=== PATIENT | male | born 1935 | race Caucasian/White ===

== ENCOUNTER 2016-03-28 10:45 | Emergency (ER) | payer MEDICARE ==
[~2016-03-28] VITALS: Ht 182.9 cm; Wt 80.9 kg
[2016-03-28 10:48] VITALS: BP 164/79; PULSE 79; RESP 15; O2SAT 98
--- NOTE | 2016-03-28 11:08 | ED.REPORT ---
HPI-Trauma Multiple Date of Service Mar 28, 2016 ED Provider: Adriel Quintero MD Moe is an 81-year-old male with a history of asbestosis who presents with a chief complaint a fall last night. Patient states that he became dizzy and fell while checking on his water pump last night. He fell over and hit his head on the metal tripod supporting his trailer. He denies loss of consciousness, but states that he was too dizzy to walk. Denies headache pain and use of blood thinners. Admits to vomiting, nonbloody and nonbilious, which he states has been chronic and happening every other day or so for the last 3 or 4 months. He reports he has been having dizzy spells and falling for roughly the same amount of time. He states that the falls are preceded by a sensation of nausea and sensation of the room is spinning. He reports a history of ongoing tenderness and a remote history of barotrauma to his ears associated with his time in the [employer]. He had upper endoscopy and colonoscopy approximately one month ago to the patient states was normal. Followed by Dr. Ayala in [place], though they state they wish to be referred to a new primary care provider. Dr. Ayala Place the patient has IBS and abuses THC. Patient admits to use of THC, but does not believe he abuses it. Denies chest pain, palpitations, cough, wheeze, dyspnea, abdominal pain, diarrhea, bloody/ tarry stool, urinary symptoms, upper respiratory symptoms. Denies cardiac history. Nursing Notes Stated Complaint: POST FALL, FACIAL PAIN Chief Complaint: Multiple Trauma/Fall Nursing Notes Reviewed: Yes Allergies: Coded Allergies: No Known Allergies (Unverified , 03/28/16) Scheduled PRN Meclizine (Bonine) 25 Mg Tab.chew 25 MG PO TID PRN PRN For Dizziness General Time Seen by Provider: 10:53 Chief Complaint Head pain/injury Past Medical History Past Medical History Notes: Asbestosis Past Medical History Denies: Cancer, Congestive heart failure, Coronary artery disease Review of Systems General: Denies fever, chills, malaise. HEENT: Denies congestion, headache, sore throat. Respiratory: Denies dyspnea, cough, shortness of breath, wheezing. Cardiovascular: Denies chest pain, palpitations. Gastrointestinal: Admits vomiting, denies diarrhea, abdominal pain, bloody/ tarry stool. Genitourinary: Denies frequency, urgency, dysuria, hematuria. Otherwise as noted in HPI. Physical Exam General: Well appearing, well developed, well nourished, no acute distress. Head: 5x5 cm area of abrasion over the left forehead, bridge of nose. normocephalic. No mastoid tenderness. Eyes: No scleral icterus or injection. No discharge. PERRL. Vision grossly intact. Ears: Pinna and tragus nontender with manipulation. External auditory canal patent, atraumatic and without discharge. Tympanic membrane gomez, shiny and translucent without fluid, bulging, retraction or perforation. Hearing grossly intact. Nose: Symmetrical, nares patent without discharge. No frontal or maxillary sinus tenderness. Mouth/pharynx: Poor dentition, mucus membranes moist. Tonsils surgically absent , uvula midline. Pharynx noninjected, no cobblestoning or discharge. Voice clear. Neck: No tenderness or lymphadenopathy. Trachea midline. Respiratory: Regular rate and rhythm. Fine crackles in all crowley. Cardiovascular: Regular rate and rhythm, without murmur, gallop or rub. No pedal edema. Gastrointestinal: Abdomen flat and non-tender without guarding or rebound. Bowel sounds normoactive. Skin: Warm and dry. Neurological: Negative pronator drift, negative leg drift. Sensation and strength grossly intact in extremities. Cranial nerves: Vision grossly intact, PERRL, EOMI with bilateral nystagmus. Facial motion symmetrical, sensation to light touch over forehead, maxilla and mandible present and equal B/L. Voice clear and fluent, no drooling/pooling of saliva, uvula rises midline. Psychological: Alert and oriented. Speech appropriate, linear and logical. Behavior appropriate. Initial Vital Signs Vital Signs (First) Date Time Temp Pulse Resp B/P Pulse Ox O2 Delivery O2 Flow Rate FiO2 03/28/16 10:48 36.1 79 15 164/79 98 Room Air Initial VS: Reviewed, Vital signs normal Interpretation & Diagnostics Lab Results Interpretation Result Diagram: 03/28/16 1228 03/28/16 1228 Test 03/28/16 12:28 03/28/16 13:29 White Blood Count 10.4th/mm3 (3.8-10.1) Red Blood Count 4.65mil/mm3 (4.40-5.80) Hemoglobin 14.2g/dL (13.8-17.2) Hematocrit 41.2% (41.0-50.0) Mean Corpuscular Volume 88.6fL (81-100) Mean Corpuscular Hemoglobin 30.5pg (27.0-35.0) Mean Corpuscular Hemoglobin Concent 34.5% (32.0-37.0) Red Cell Distribution Width 13.1% (12.3-15.4) Platelet Count 268bil/L (150-400) Neutrophils (%) (Auto) 70.7% (40-74) Lymphocytes (%) (Auto) 17.0% (14-46) Monocytes (%) (Auto) 10.1% (4-12) Eosinophils (%) (Auto) 1.0% (0-5) Basophils (%) (Auto) 0.3% (0-3) Sodium Level 129mEq/L (134-144) Potassium Level 4.4mEq/L (3.5-5.2) Chloride Level 89mEq/L (97-108) Carbon Dioxide Level 26mmol/L (18-29) Blood Urea Nitrogen 19mg/dL (8-27) Creatinine 0.94mg/dL (0.76-1.27) Estimat Glomerular Filtration Rate 82mL/min (>59) Glucose Level 98mg/dL (60-99) Calcium Level 9.4mg/dL (8.5-10.1) Total Bilirubin 0.2mg/dL (0.0-1.2) Aspartate Amino Transf (AST/SGOT) 19U/L (0-50) Alanine Aminotransferase (ALT/SGPT) 12U/L (0-44) Alkaline Phosphatase 57U/L (25-160) Troponin T < 0.010ug/L (0.0-0.011) Total Protein 6.9g/dL (6.4-8.4) Albumin 4.1g/dL (3.4-5.0) Hold Urine Received (Received) X-Ray Chest Interpretation Chest Xray Interpretation: PROCEDURE: X-RAY CHEST ONE VIEW, PORTABLE ([id number]) INDICATIONS: vertigo, fall IMPRESSION: Relatively extensive pleural plaquing and calcification noted over the lungs bilaterally. No acute disease when this is taken into account. Interpretation / Wet Read by: Interpret - Radiologist, Interp - [facility] CT Head Interpretation PROCEDURE: CT BRAIN WITHOUT CONTRAST ([id number]) INDICATIONS: fall CSF spaces: Basal cisterns are patent. No extra-axial fluid collections. The ventricles are symmetric in size and shape. Brain: No intracranial bleeds or masses. There is cerebral volume loss for age, with resultant ventricular and sulcal prominence. There are periventricular and deep white matter chronic small vessel ischemic changes. There is intracranial internal carotid artery atherosclerosis. Skull and face: Calvarium and visualized facial bones appear intact, without suspicious lesions. Mild left frontal scalp swelling is noted. Sinuses: Visualized sinuses and mastoids are clear. IMPRESSION: No acute intracranial disease process. Re-Eval/Medical Decision Med Decision/Clinical Course Moe is a 81-year-old male with history of asbestosis who presents with a chief complaint of fall. He reports becoming dizzy last night falling and striking his head. Denies loss of consciousness, increasing headache, use of blood thinners. Does admit vomiting which has been chronic over the last 2-3 months. Vertiginous dizziness has been persistent intermittently over the last 2-3 months as well. Denies history of cardiac events. Physical exam reveals an abrasion over the left forehead and bridge of his nose. CT of the head reveals no acute processes. Cardiac workup including troponin, EKG and chest x-ray are reassuring. Everardo-Hallpike maneuver is negative. Cranial nerves and neurological examination normal with the exception of lateral nystagmus with EOM. Borderline hyponatremia noted not thought to be pertinent. I discussed the case with Dr. quintero. We believe this most likely peripheral vertigo versus central due to intermittent nature. Abrasion to the forehead appears to be healing well with no signs of infection. Patient is unhappy with his current primary care provider. I provided a referral for primary care follow-up and advised to follow-up in the next few days to further address the chronic nausea vomiting dizziness. Provided prescription for meclizine and return precautions Discharge & Departure Impression: Primary Impression: Contusion of head Encounter type: initial encounter Contusion of head detail: scalp Qualified Code: S00.03XA - Contusion of scalp, initial encounter Additional Impression: Vertigo Disposition: Home Discharge Condition All VS Reviewed: Yes Condition: Stable Patient Instructions: Contusions in Adults (ED) Additional Instructions: Evaluation following a ground-level fall last night. Head CT was reassuring that there is no skull fracture or bleeding in the brain. Chest x-ray, EKG and labs are reassuring that the fall was not caused by a cardiac event. History and physical suggest this is most likely dizziness caused by a problem in your ear. I will prescribe medication to help with this. I will also provide you a referral for a new primary care provider. Please contact them soon to arrange follow-up in the next few days if possible. Return to emergency department for any new or worsening symptoms including repeated vomiting, increasing headache, loss of consciousness, worsening dizziness. Referrals: Nima Jones MD EDSupervising Provider for APC: Adriel Quintero MD Attending Statement Attending attestation: I saw this patient in conjunction with Jai Pizano PA-C. I agree with the workup, evaluation, treatment and disposition. Adriel Quintero MD copies to: Nima Jones MD, Beck O MD Mar 28, 2016 11:08 Jai Pizano PA-C Mar 28, 2016 11:49
[2016-03-28] MEDS ORDERED: 0.9% Sodium Chloride 1,000 ML IV ONE (11:49)
[2016-03-28 12:34] LABS: BASOPHILS % (AUTO) 0.3 % (0-3); MONOCYTES % (AUTO) 10.1 % (4-12); Mean Corpuscular Hemoglobin 30.5 pg (27.0-35.0); Mean Corpuscular Volume 88.6 fL (81-100); NEUTROPHILS % (AUTO) 70.7 % (40-74); Platelet Count 268 bil/L (150-400)
--- NOTE | 2016-03-28 12:35 | DRSVH ---
PROCEDURE: X-RAY CHEST ONE VIEW, PORTABLE ([id number]) INDICATIONS: vertigo, fall TECHNIQUE: One view of the chest was acquired. COMPARISON: [facility], CR, CHEST 2VW, 12/23/2013, 14:11. [facility], CT, KUB - CT (ABD/PEL W/O CONT), 04/21/2015, 9:41. [facility], CR, ABD ACUTE SERIES, 016, 16:52. FINDINGS: Surgical changes and devices: None. Lungs and pleura: No pleural effusions or pneumothorax. Lungs are somewhat difficult to assess due to overlying pleural plaquing and calcifications as has been previously the case. Mediastinum: Mediastinal contours appear normal. Heart size is normal. Bones and chest wall: No suspicious bony lesions. Overlying soft tissues appear unremarkable. IMPRESSION: Relatively extensive pleural plaquing and calcification noted over the lungs bilaterally. No acute disease when this is taken into account. Dictated by: Boo Pollock M.D. on 03/28/2016 at 12:34 Approved by: Boo Pollock M.D. on 03/28/2016 at 12:35
--- NOTE | 2016-03-28 12:58 | DRSVH ---
PROCEDURE: CT BRAIN WITHOUT CONTRAST ([id number]) INDICATIONS: fall TECHNIQUE: Noncontrast 4.5 mm thick angled axial sections acquired from the foramen magnum to the vertex, with c oronal reformats. COMPARISON: None. FINDINGS: Image quality: Excellent. CSF spaces: Basal cisterns are patent. No extra-axial fluid collections. The ventricles are symmet mckinley in size and shape. Brain: No intracranial bleeds or masses. There is cerebral volume loss for age, with resultant vent ricular and sulcal prominence. There are periventricular and deep white matter chronic small vessel ischemic changes. There is intracranial internal carotid artery atherosclerosis. Skull and face: Calvarium and visualized facial bones appear intact, without suspicious lesions. Mil d left frontal scalp swelling is noted. Sinuses: Visualized sinuses and mastoids are clear. IMPRESSION: No acute intracranial disease process. Dictated by: Taylor Alonzo MD, PhD on 03/28/2016 at 12:55 Approved by: Taylor Alonzo MD, PhD on 03/28/2016 at 12:56
[2016-03-28 13:05] LABS: TROPONIN T < 0.010 ug/L (0.0-0.011)
[2016-03-28] MEDS ORDERED: MECL-114 PO (13:42)
[2016-03-28 14:04] VITALS: BP 158/74; PULSE 72; RESP 16; O2SAT 98
== END 2016-03-28 14:06 | disposition home or self-care (01) ==
LOC: SED 10:45
DX: S00.03XA Contusion of scalp, initial encounter (principal); R42 Dizziness and giddiness; R11.10 Vomiting, unspecified; W18.09XA Striking against other object with subsequent fall, initial encounter; Y93.89 Activity, other specified; Y92.9 Unspecified place or not applicable; Y99.8 Other external cause status; Z77.090 Contact with and (suspected) exposure to asbestos; Z91.81 History of falling
CPT/HCPCS: 36415; 70450; 71010; 80053; 84484; 85025; 93005; 96360; 99285; J7030

== ENCOUNTER 2016-04-04 13:06 | Inpatient (IN) | payer MEDICARE ==
[~2016-04-04] VITALS: Ht 182.9 cm; Wt 79.0 kg
[~2016-04-04 13:06] MED LIST: MECL-114 PO
[2016-04-04 13:11] VITALS: BP 129/78; PULSE 78; RESP 16; O2SAT 98
--- NOTE | 2016-04-04 13:20 | ED.REPORT ---
HPI-General Illness Date of Service Apr 04, 2016 ED Provider: History of Present Illness: 81-year-old male brought in by his daughter, Rama, for increasing dizziness, increasing falls and weakness. THis been ongoing for 3 months but really increasing in the last 2 weeks. They have been worked up multiple times. Here 03/28/16, [facility] yesterday. He had an CT of his brain yesterday, normal. They have seen his PCP Dr. Ayala. He has a neuro consult has not gone. He was given medications for his dizziness yesterday but have not picked them up. He fell last night and again this morning., landing on his posterior occiput both times. No loss of consciousness. States he fell because he was dizzy/lightheaded. Dizziness is brief but severe. He has been vomiting intermittently for 3-4 months. Usually in the morning and at night. Decreased oral intake but is able to take in fluids and food he does have more trouble keeping it down. He has a history of cough and his cough is at its baseline. He was exposed to absestos. He is not confused, no drug use, and he is a nonsmoker. Patient's daughter adamant that he needs to be admitted today as he is unsafe at home. Nursing Notes Stated Complaint: NOT EATING,FALLING DOWN,CANT STAND UP Chief Complaint: Multiple Trauma/Fall Nursing Notes Reviewed: Yes Allergies: Coded Allergies: No Known Allergies (Unverified , 03/28/16) Scheduled Esomeprazole Magnesium (Nexium) 20 Mg Capsule.dr 20 MG PO QAM Scheduled PRN Meclizine (Bonine) 25 Mg Tab.chew 25 MG PO TID PRN PRN For Dizziness Ondansetron (Ondansetron) 4 Mg Tablet 4 MG PO TID PRN PRN For Nausea/Vomiting Polyethylene Glycol 3350 (Polyethylene Glycol 3350) 17 Gm Powd.pack 17 GM PO DAILY PRN PRN For Constipation General Time Seen by MD: 13:19 Chief Complaint Dizziness Hx Obtained From: Patient, Daughter Arrived By: Walk-in Onset Occurred: More than a week ago... (4 months) Severity: Current: No pain currently Recent Healthcare: Recent doctor visit, Recent hospitalization Similar Sx Previous: Yes Past Medical History Past Medical History Notes: Asbestosis GERD Review of Systems Full Review of Systems Constitutional: Denies: Fatigue, Fever Respiratory: Reports: Dyspnea on exertion Cardiovascular: Denies: Chest pain GI: Reports: Nausea, Vomiting, Denies: Abdominal pain Male: Denies Dysuria Musculoskeletal: Reports: Back pain Endocrine: Denies: Weight gain, Weight loss Neurologic: Reports: Dizziness, Lightheaded Complete sys rev & neg: except as marked. Physical Exam Vital Signs Vital Signs Date Time Temp Pulse Resp B/P Pulse Ox O2 Delivery O2 Flow Rate FiO2 04/04/16 13:11 36.0 78 16 129/78 98 Room Air Initial VS: Reviewed, Vital signs normal General/Constitutional: Well-developed, Well-nourished Head / Eyes: Atraumatic, Normocephalic, PERRL ENT: Mucous membranes moist, Conjunctiva normal, No scleral icterus Neck: Supple, Non-tender, Full range of motion Respiratory: No respiratory distress Cardiovascular: Regular rate & rhythm, Heart sounds normal, Intact distal pulses Abdomen / GI: Soft, Non-tender, No guarding, No rebound, No distention Lymphatic: No lymphadenopathy Extremities: Vascular intact, Neuro intact, No swelling, No tenderness Skin: Warm, Dry, No cyanosis Neurologic: Alert, Oriented, Nonfocal Psychiatric: Mood/affect normal, Behavior normal, Normal thought content General/Constitutional: Awake, Alert, No acute distress Head / Eyes: PERRL Eye Movement: Positive: Nystagmus horizontal left nystagmus Rales / Rhonchi: Positive: Rhonchi coarse L Interpretation & Diagnostics Interpretation & Diagnostics: MPRESSION: Prior asbestos related pleural disease, 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 No pneumonia found. MPRESSION: 1. No acute intracranial findings. 2. Findings suspicious for new left maxillary sinus sinusitis. 3. Findings likely associated with microvascular ischemic changes. Lab Results Interpretation Result Diagram: 04/04/16195704/04/161957 Test 04/04/16 14:05 04/04/16 14:25 04/04/16 14:41 Troponin T < 0.010ug/L (0.0-0.011) Hold Flores Top Tube Received (Received) Alcohol, Quantitative < 10mg/dL (0-10) Lactic Acid Level 1.2mmol/L (0.4-2.0) Urine Color Yellow (YELLOW) Urine Appearance Hazy (CLEAR,HAZY) Urine pH 7.5 (5.0-8.0) Urine Specific [place] 1.015 (1.003-1.035) Urine Protein Negativemg/dL (NEG,TRACE) Urine Glucose (UA) Negativemg/dL (NEGATIVE) Urine Ketones Negativemg/dL (NEGATIVE) Urine Occult Blood Negative (NEGATIVE) Urine Nitrite Negative (NEGATIVE) Urine Bilirubin Negative (NEGATIVE) Urine Urobilinogen Normalmg/dL (NORMAL) Urine Leukocyte Esterase Negative (NEGATIVE) Urine RBC 0-2/hpf (0-2) Urine WBC 0-5/hpf (0-5) Urine Epithelial Cells Occasional/hpf (NONE-MOD) Urine Crystals Amorphous phosphates Urine Bacteria Few/hpf (NONE-FEW) Urine Hyaline Casts None/lpf (NONE) Urine Granular Casts None seen (NONE SEEN) Urine Waxy Casts None seen (NONE SEEN) Urine Red Blood Cell Casts None seen (NONE SEEN) Urine White Blood Cell Casts None seen (NONE SEEN) Urine Mucus Present (None Seen) Urine Trichomonas None seen (NONE SEEN) Urine Yeast None (NONE SEEN) Urinalysis Comment None Urine Culture Reflexed Not indicated Lab Results Interpretation: CBC normal CMP - mild hyponatremia UA negative Re-Eval/Medical Decision Med Decision/Clinical Course 1630 Dr. Quintana at bedside for evaluation, discussed patient with him and agrees with admission. Daughter adamant that he cannot go home as he is unsafe. Source of Hx: Old records (cane from [place]) Consultation : Referral / Consult Name: Maria Elena Sanchez MD Consulted With: Hospitalist Call Returned at: 17:30 Corporate Secretary: Accepts admit Note: I discussed case with hospitalist - Dr. Quintana Counseled Regarding: Diagnosis Discharge & Departure Primary Impression: Vertigo Additional Impressions: Hyponatremia Multiple falls Referrals: OTHER,PHYSICIAN (PCP) Attending Statement This is a patient initially seen by the mid-level provider. However I personally interviewed and examined this patient. This patient presents complaining of ongoing dizziness and ongoing multiple falls. He has had some dizziness for the past couple months, he family indicates has been much worsening over the past roughly 7-14 days. Patient was seen on March 28 of dizziness and a fall, negative workup at that time. He was seen yesterday in [place] again had a repeat head CT, and is allegedly scheduled for an outpatient MRI, but had a third fall this morning, reports dizzy and his family states "he absolutely cannot walk". The family is immediately rectal rectal requesting admission given a do not think he is safe at home. He denies any headache or neck pain. Denies focal numbness or weakness although reports at times he says his left arm feels cold-but that has been occurring over the past year and is not new. (He has strong pulses today). He denies any infectious symptoms. He does report a sense of movement and the symptoms are worsened by sitting up, turning his head, or standing up nicely recurrent nausea. He is medication list includes meclizine-but the patient states the first of all the meclizine was not helping, as a result his family and suggested Benadryl which she has been taking only one tab twice a day recent days, but that he is actually been out all medicines for the past 2-3 days which he is actually frustrated about. He denies being on anticoagulants. Procedure his head hard today, he denies any headache or neck pain at present. He denies any pain for many injuries from multiple falls this past week. His family do think there has been a change in mental status and acuity over the past week since he is pretty sudden, speech and mentation appear intact in the department. For me has an NIH stroke scale of 0, with no focal findings on the stroke scale. He does however have horizontal nystagmus lateral gaze, which is actually worse with looking to the left. Is unknown if this is really new. He has normal finger to nose, and normal [id number] without gross ataxia in those testing-but does not feel comfortable getting up-as R he had multiple falls demonstrating an imbalance, so gait was not retested at this time. He had repeat labs and imaging performed. Records from [place] were obtained. Although the nurse's note indicates he has had an MRI, and the patient thought that he had an MRI yesterday, he had CT imaging at [place]-has not yet undergone MRI imaging today. His labs are notable for mild hyponatremia, but do not appear changed over the past week. The patient has normal vitals, is afebrile, has no infectious symptoms. At this point with 3 repeat visits, worsening of symptoms, inability to safely handle A, multiple call falls-admission is indeed warranted. I have ordered an MRI of the brain, physical therapy consultation during the hospitalization as also indicated, and the patient's or PE received a dose of meclizine. The case is discussed with the hospitalist Anu Pugh Apr 04, 2016 13:20 Darian Quintana MD Apr 04, 2016 18:02 Amorphous phosphates Urine Bacteria Few/hpf (NONE-FEW) Urine Hyaline Casts None/lpf (NONE) Urine Granular Casts None seen (NONE SEEN) Urine Waxy Casts None seen (NONE SEEN) Urine Red Blood Cell Casts None seen (NONE SEEN) Urine White Blood Cell Casts None seen (NONE SEEN) Urine Mucus Present (None Seen) Urine Trichomonas None seen (NONE SEEN) Urine Yeast None (NONE SEEN) Urinalysis Comment None Urine Culture Reflexed Not indicated Lab Results Interpretation: CBC normal CMP - mild hyponatremia UA negative Re-Eval/Medical Decision Med Decision/Clinical Course 1630 Dr. Quintana at bedside for evaluation, discussed patient with him and agrees with admission. Daughter adamant that he cannot go home as he is unsafe. Consultation : Referral / Consult Name: Maria Elena Sanchez MD Consulted With: Hospitalist Call Returned at: 17:30 Corporate Secretary: Accepts admit Note: I discussed case with hospitalist - Dr. Quintana Discharge & Departure Primary Impression: Vertigo Additional Impressions: Hyponatremia Multiple falls Referrals: OTHER,PHYSICIAN (PCP) Attending Statement This is a patient initially seen by the mid-level provider. However I personally interviewed and examined this patient. This patient presents complaining of ongoing dizziness and ongoing multiple falls. He has had some dizziness for the past couple months, he family indicates has been much worsening over the past roughly 7-14 days. Patient was seen on March 28 of dizziness and a fall, negative workup at that time. He was seen yesterday in [facility] had a repeat head CT, and is allegedly scheduled for an outpatient MRI, but had a third fall this morning, reports dizzy and his family states "he absolutely cannot walk". The family is immediately rectal rectal requesting admission given a do not think he is safe at home. He denies any headache or neck pain. Denies focal numbness or weakness although reports at times he says his left arm feels cold-but that has been occurring over the past year and is not new. (He has strong pulses today). He denies any infectious symptoms. He does report a sense of movement and the symptoms are worsened by sitting up, turning his head, or standing up nicely recurrent nausea. He is medication list includes meclizine-but the patient states the first of all the meclizine was not helping, as a result his family and suggested Benadryl which she has been taking only one tab twice a day recent days, but that he is actually been out all medicines for the past 2-3 days which he is actually frustrated about. He denies being on anticoagulants. Procedure his head hard today, he denies any headache or neck pain at present. He denies any pain for many injuries from multiple falls this past week. His family do think there has been a change in mental status and acuity over the past week since he is pretty sudden, speech and mentation appear intact in the department. For me has an NIH stroke scale of 0, with no focal findings on the stroke scale. He does however have horizontal nystagmus lateral gaze, which is actually worse with looking to the left. Is unknown if this is really new. He has normal finger to nose, and normal [id number]-sjfv without gross ataxia in those testing-but does not feel comfortable getting up-as R he had multiple falls demonstrating an imbalance, so gait was not retested at this time. He had repeat labs and imaging performed. Records from [place] were obtained. Although the nurse's note indicates he has had an MRI, and the patient thought that he had an MRI yesterday, he had CT imaging at [place]-has not yet undergone MRI imaging today. His labs are notable for mild hyponatremia, but do not appear changed over the past week. The patient has normal vitals, is afebrile, has no infectious symptoms. At this point with 3 repeat visits, worsening of symptoms, inability to safely handle A, multiple call falls-admission is indeed warranted. I have ordered an MRI of the brain, physical therapy consultation during the hospitalization as also indicated, and the patient's or PE received a dose of meclizine. The case is discussed with the hospitalist Anu Pugh Apr 04, 2016 13:20 Darian Quintana MD Apr 04, 2016 18:02
[2016-04-04 14:11] LABS: BASOPHILS % (AUTO) 0.3 % (0-3); EOSINOPHILS % (AUTO) 0.7 % (0-5); MONOCYTES % (AUTO) 10.3 % (4-12); Mean Corpuscular Hemoglobin 30.5 pg (27.0-35.0); Mean Corpuscular Volume 88.2 fL (81-100); NEUTROPHILS % (AUTO) 65.5 % (40-74); Platelet Count 272 bil/L (150-400)
--- NOTE | 2016-04-04 14:13 | DRSVH ---
PROCEDURE: CT BRAIN WITHOUT CONTRAST ([id number]) INDICATIONS: fall/dizziness TECHNIQUE: Noncontrast 4.5 mm thick angled axial sections acquired from the foramen magnum to the vertex, with c oronal reformats. COMPARISON: [facility], CT, CT BRAIN WO CON, 03/28/2016, 12:38. FINDINGS: Image quality: Excellent. CSF spaces: Basal cisterns are patent. No extra-axial fluid collections. The ventricles are symmet mckinley in size and shape. Brain: No intracranial bleeds or masses. There is cerebral volume loss for age, with resultant vent ricular and sulcal prominence. There are periventricular and deep white matter chronic small vessel ischemic changes. There is intracranial internal carotid artery atherosclerosis. Skull and face: Calvarium and visualized facial bones appear intact, without suspicious lesions. Sinuses: Frothy appearing fluid is present in the inferior aspect of the left maxillary sinus which is new when compared with the study dated 03/28/16. Visualized sinuses and mastoids are otherwise mukesh r. IMPRESSION: 1. No acute intracranial findings. 2. Findings suspicious for new left maxillary sinus sinusitis. 3. Findings likely associated with microvascular ischemic changes. Dictated by: Malgorzata Jacobs M.D. on 04/04/2016 at 14:02 Approved by: Malgorzata Jacobs M.D. on 04/04/2016 at 14:12
[2016-04-04 14:37] LABS: TROPONIN T < 0.010 ug/L (0.0-0.011)
[2016-04-04 14:53] LABS: APPEARANCE,URINE HAZY (CLEAR,HAZY); COLOR,URINE YELLOW (YELLOW); OCCULT BLOOD,URINE NEGATIVE (NEGATIVE); PH,URINE 7.5 (5.0-8.0)
[2016-04-04 14:54] LABS: UROBILINOGEN,URINE NORMAL (NORMAL)
--- NOTE | 2016-04-04 15:49 | DRSVH ---
PROCEDURE: X-RAY CHEST ONE VIEW, PORTABLE ([id number]) INDICATIONS: cough TECHNIQUE: One view of the chest was acquired. COMPARISON: [facility], CR, XR CHEST 1VW (PORTABLE), 03/28/2016, 12:13. FINDINGS: Surgical changes and devices: None. Lungs and pleura: No pleural effusions or pneumothorax. Lungs are unchanged, with overlying chronic pleural plaquing and calcifications consistent with extensive prior asbestos related pleural disease . Mediastinum: Mediastinal contours appear normal. Heart size is normal. Bones and chest wall: No suspicious bony lesions. Overlying soft tissues appear unremarkable. 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 No pneumonia found. Dictated by: Boo Pollock M.D. on 04/04/2016 at 15:47 Approved by: Boo Pollock M.D. on 04/04/2016 at 15:47
[2016-04-04] MEDS ORDERED: POLY17PO2 PO (17:11)
[2016-04-04] MEDS ORDERED: ONDA-53 PO (17:11)
[2016-04-04] MEDS ORDERED: ESOM20CA28 PO (17:11)
[2016-04-04] MEDS ORDERED: Alum-Mag Hydrox-Simeth 30 mL Suspension PO PRN ×2 (18:10→19:35)
[2016-04-04] MEDS ORDERED: Ondansetron 2 mg/mL 2 mL Inj IVPUSH PRN (18:10)
[2016-04-04 18:23] VITALS: BP 142/82; PULSE 75; RESP 18; O2SAT 97
[2016-04-04] MEDS: 0.9% Sodium Chloride 1,000 ML IV SCH ×2 (19:31→20:07)
[2016-04-04] MEDS ORDERED: Ondansetron 2 mg/mL 2 mL Inj IV PRN (19:35)
[2016-04-04] MEDS ORDERED: Polyethylene Glycol (PEG) 17 Gm Powder PO PRN ×2 (19:35→19:45)
--- NOTE | 2016-04-04 19:55 | PCM.HPMED ---
Subjective Date of Service Apr 04, 2016 Primary Provider: Admitting Physician: Maria Elena Sanchez MD Primary Care Physician: Other,Physician Attending Physician: Maria Elena Sanchez MD Admit Status: From the Emergency Department, Remote Telemetry Chief Complaint: Worsening vertigo and falls History of Present Illness: This is a 81-year-old male who was brought in by his daughter today. He has been having since July episodes of vertigo however over the past 2 weeks they have been getting a lot worse. She has been seen multiple times in the ER including [facility] and [facility]. CT of brain has been done and has been negative. He does have a neuro consultation but has not gone to it yet. As of the vertigo he does have falls. He is noted to have some nystagmus of his left eye may be a little bit of eyelid drooping on the left. Also of note today his sodium was low at 129. He has no motor deficits however. He does get nauseous with the vertigo. He takes meclizine at home and maybe helps a little bit. He denies any chest pain or shortness of breath. Denies any problem with use of his hands. Review of Systems: Denies any fevers chills. All other review of systems are reviewed and are negative except for as in history of present illness. Allergies Coded Allergies: No Known Allergies (Unverified , 03/28/16) Home Medications Esomeprazole Magnesium (Nexium) 20 Mg Capsule.dr 20 MG PO QAM Scheduled PRN Meclizine (Bonine) 25 Mg Tab.chew 25 MG PO TID PRN PRN For Dizziness Ondansetron (Ondansetron) 4 Mg Tablet 4 MG PO TID PRN PRN For Nausea/Vomiting Polyethylene Glycol 3350 (Polyethylene Glycol 3350) 17 Gm Powd.pack 17 GM PO DAILY PRN PRN For Constipation PMH Past Medical History Notes: Asbestosis GERD Family History No family history of neurovascular diseases Social History Hx Alcohol Use: No (quit-sober since 1973) Hx Substance Use: No Living Arrangement: Alone Exam Vital Signs Vital Sign - Last Date Time Temp Pulse Resp B/P Pulse Ox O2 Delivery O2 Flow Rate FiO2 04/04/16 18:23 36.7 75 18 142/82 97 Room Air Exam Constitutional: Elderly man in mild distress Head: Normocephalic atraumatic Eyes: PERRLA LAD C EOMI does have left horizontal nystagmus however Mouth: No lesions noted Neck: Carotids 2+ over 4 without bruits bilaterally Chest: Clear to auscultation Heart: Regular rate and rhythm S1-S2 without murmur Abdomen: Soft nontender bowel sounds present Extremities: No pedal edema noted Skin: No rashes Psych: Mood and affect are appropriate Neurologic: Alert and oriented 3, motor and sensory are intact bilaterally, finger to nose is intact bilaterally Lab and Diagnostics Labs Laboratory Tests 72 Hours Test 04/04/16 14:05 04/04/16 14:25 04/04/16 14:41 White Blood Count 10.0th/mm3 (3.8-10.1) Red Blood Count 4.91mil/mm3 (4.40-5.80) Hemoglobin 15.0g/dL (13.8-17.2) Hematocrit 43.3% (41.0-50.0) Mean Corpuscular Volume 88.2fL (81-100) Mean Corpuscular Hemoglobin 30.5pg (27.0-35.0) Mean Corpuscular Hemoglobin Concent 34.6% (32.0-37.0) Red Cell Distribution Width 13.4% (12.3-15.4) Platelet Count 272bil/L (150-400) Neutrophils (%) (Auto) 65.5% (40-74) Lymphocytes (%) (Auto) 22.6% (14-46) Monocytes (%) (Auto) 10.3% (4-12) Eosinophils (%) (Auto) 0.7% (0-5) Basophils (%) (Auto) 0.3% (0-3) Sodium Level 129mEq/L (134-144) Potassium Level 4.3mEq/L (3.5-5.2) Chloride Level 91mEq/L (97-108) Carbon Dioxide Level 24mmol/L (18-29) Blood Urea Nitrogen 19mg/dL (8-27) Creatinine 0.86mg/dL (0.76-1.27) Estimat Glomerular Filtration Rate 91mL/min (>59) Glucose Level 83mg/dL (60-99) Calcium Level 9.3mg/dL (8.5-10.1) Total Bilirubin 0.7mg/dL (0.0-1.2) Aspartate Amino Transf (AST/SGOT) 18U/L (0-50) Alanine Aminotransferase (ALT/SGPT) 16U/L (0-44) Alkaline Phosphatase 58U/L (25-160) Troponin T < 0.010ug/L (0.0-0.011) Total Protein 7.0g/dL (6.4-8.4) Albumin 4.2g/dL (3.4-5.0) Hold Flores Top Tube Received (Received) Alcohol, Quantitative < 10mg/dL (0-10) Lactic Acid Level 1.2mmol/L (0.4-2.0) Urine Color Yellow (YELLOW) Urine Appearance Hazy (CLEAR,HAZY) Urine pH 7.5 (5.0-8.0) Urine Specific [place] 1.015 (1.003-1.035) Urine Protein Negativemg/dL (NEG,TRACE) Urine Glucose (UA) Negativemg/dL (NEGATIVE) Urine Ketones Negativemg/dL (NEGATIVE) Urine Occult Blood Negative (NEGATIVE) Urine Nitrite Negative (NEGATIVE) Urine Bilirubin Negative (NEGATIVE) Urine Urobilinogen Normalmg/dL (NORMAL) Urine Leukocyte Esterase Negative (NEGATIVE) Urine RBC 0-2/hpf (0-2) Urine WBC 0-5/hpf (0-5) Urine Epithelial Cells Occasional/hpf (NONE-MOD) Urine Crystals Amorphous phosphates Urine Bacteria Few/hpf (NONE-FEW) Urine Hyaline Casts None/lpf (NONE) Urine Granular Casts None seen (NONE SEEN) Urine Waxy Casts None seen (NONE SEEN) Urine Red Blood Cell Casts None seen (NONE SEEN) Urine White Blood Cell Casts None seen (NONE SEEN) Urine Mucus Present (None Seen) Urine Trichomonas None seen (NONE SEEN) Urine Yeast None (NONE SEEN) Urinalysis Comment None Urine Culture Reflexed Not indicated Result Diagram: 04/04/16 1405 04/04/16 1405 X-Rays, CTs and MRIs PROCEDURE: CT BRAIN WITHOUT CONTRAST ([id number]) INDICATIONS: fall/dizziness TECHNIQUE: Noncontrast 4.5 mm thick angled axial sections acquired from the foramen magnum to the vertex, with coronal reformats. COMPARISON: [facility], CT, CT BRAIN WO CON, 03/28/2016, 12:38. FINDINGS: Image quality: Excellent. CSF spaces: Basal cisterns are patent. No extra-axial fluid collections. The ventricles are symmetric in size and shape. Brain: No intracranial bleeds or masses. There is cerebral volume loss for age , with resultant ventricular and sulcal prominence. There are periventricular and deep white matter chronic small vessel ischemic changes. There is intracranial internal carotid artery atherosclerosis. Skull and face: Calvarium and visualized facial bones appear intact, without suspicious lesions. Sinuses: Frothy appearing fluid is present in the inferior aspect of the left maxillary sinus which is new when compared with the study dated 03/28/16. Visualized sinuses and mastoids are otherwise clear. IMPRESSION: 1. No acute intracranial findings. 2. Findings suspicious for new left maxillary sinus sinusitis. 3. Findings likely associated with microvascular ischemic changes. Dictated by: Malgorzata Jacobs M.D. on 04/04/2016 at 14:02 Approved by: Malgorzata Jacobs M.D. on 04/04/2016 at 14:12 PROCEDURE: X-RAY CHEST ONE VIEW, PORTABLE ([id number]) INDICATIONS: cough TECHNIQUE: One view of the chest was acquired. COMPARISON: [facility], CR, XR CHEST 1VW (PORTABLE), 03/28/2016, 12: 13. FINDINGS: Surgical changes and devices: None. Lungs and pleura: No pleural effusions or pneumothorax. Lungs are unchanged, with overlying chronic pleural plaquing and calcifications consistent with extensive prior asbestos related pleural disease. Mediastinum: Mediastinal contours appear normal. Heart size is normal. Bones and chest wall: No suspicious bony lesions. Overlying soft tissues appear unremarkable. 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 No pneumonia found. Dictated by: Boo Pollock M.D. on 04/04/2016 at 15:47 Approved by: Boo Pollock M.D. on 04/04/2016 at 15:47 12-lead ECG Pending at the time of this dictation Assessment & Plan # Progressive vertigo, subacute, present on admission MRI imaging of brain ordered Check carotid duplex also Check echocardiogram Start ASA daily Check lipid panel Continue with meclizine when necessary PT and OT consultation Also consult social security specialist for possible placement Place on telemetry and check 12-lead EKG # Hyponatremia, acute, present on admission Possibly related to poor by mouth intake IV saline hydration and recheck in a.m. #DVT prophylaxis Placed on subcutaneous Lovenox # CODE STATUS Patient is full code Resuscitation Status: CPR: Attempt Resuscitation Time spent 60 minutes Maria Elena Sanchez MD Apr 04, 2016 19:55 Anu Pugh Apr 04, 2016 20:52
--- NOTE | 2016-04-04 20:04 | DRSVH ---
PROCEDURE: MRI BRAIN WITH AND WITHOUT CONTRAST ([id number]) INDICATIONS: vertigo, 3rd ED visit for sx TECHNIQUE: Noncontrast axial T1 spin echo, axial T2 fast spin echo, sagittal and axial FLAIR, coronal T2 fast sp in echo, axial gradient echo, axial diffusion and ADC through the brain. After the administration of contrast, axial and coronal T1 spin echo with fat saturation through the brain. COMPARISON: [facility], CT, CT BRAIN WO CON, 03/28/2016, 12:38. [facility], CT, CT BRAIN WO CON, 04/04/2016, 13:54. FINDINGS: Image quality: Excellent. CSF spaces: Basal cisterns are patent. No extra-axial fluid collections. Ventricles are normal in size and shape. Brain: No midline shift. There are multiple regions of intraparenchymal multinodular avid post cont rast enhancement. The largest of these is within the right anterior temporal lobe, measuring roughly 46 mm anteroposter ior by 24 mm transverse by 20 mm craniocaudal. There is moderate surrounding ill-defined FLAIR signal elevation within the adjacent aspects of the right anterior temporal lobe. There is ill-defined avid post contrast enhancement seen within the right postero-medial parietal lob e, measuring 26 mm anteroposterior by 26 mm transverse by 29 mm craniocaudal, with moderate surroundi ng ill-defined FLAIR signal elevation in the adjacent parietal lobe. There is a small focus of low gr adient echo signal intensity within this lesion, suggestive of a vascular malformation. Within the right anteromedial thalamus, there is a 23 mm anteroposterior by 14 mm transverse by 21 mm craniocaudal region of avid multi-nodular post contrast-enhancement, with moderate surrounding FLAIR signal elevation in the adjacent right thalamus. Within the left middle and inferior cerebellar peduncle, there is a 20 mm transverse by 15 millimeter anteroposterior by 22 mm craniocaudal region of avid multinodular post contrast-enhancement, with mo derate surrounding FLAIR signal elevation in the left middle and inferior cerebellar peduncles. There is cerebral volume loss for age. There is moderate periventricular white matter chronic small vessel ischemic change. The brainstem appears normal. Diffusion-weighted images demonstrate no acut e ischemic insults. No chronic ischemic insults. Normal intravascular flow voids are present. Skull and face: Calvarial marrow is normal in signal. Orbits appear normal. Sinuses: Sinuses and mastoids appear clear. IMPRESSION: 1. Multiple similar-appearing abnormalities within the cerebrum and cerebellum as described above, wi th surrounding vasogenic edema. 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 However, given the surrounding vasogenic edema, multifocal glioblastoma versus metastatic disease versus tumefactive multiple sclerosis could produce a similar appearance. CT angiography may be helpf ul for further assessment, to resolve feeding and draining vessels. There is no evidence of associate d acute hemorrhage. 2. Volume loss and small vessel ischemic disease. 3. Findings discussed with Dr. Quintana on 04.04.[address] [place] [address]. PST. Dictated by: Cody Andrade M.D. on 04/04/2016 at 18:33 Approved by: Cody Andrade M.D. on 04/04/2016 at 19:02
[2016-04-04 20:10] LABS: EOSINOPHILS % (AUTO) 1.6 % (0-5)
[2016-04-04 20:13] LABS: BASOPHILS % (AUTO) 0.3 % (0-3); MONOCYTES % (AUTO) 10.3 % (4-12); Mean Corpuscular Hemoglobin 30.4 pg (27.0-35.0); Mean Corpuscular Volume 87.7 fL (81-100); NEUTROPHILS % (AUTO) 62.3 % (40-74); Platelet Count 267 bil/L (150-400)
[2016-04-04 20:27] LABS: INR 1.1 ratio
[2016-04-04 20:30] LABS: ERYTHROCYTE SEDIMENTATION RATE 5 mm/hr (0-30)
[2016-04-04 20:42] LABS: Magnesium 1.9 mg/dL (1.6-2.6)
[2016-04-04 20:50] VITALS: BP 133/78; PULSE 73; RESP 16; O2SAT 98
--- NOTE | 2016-04-04 23:40 | PCM.EDPN ---
ED Note Date of Service Apr 04, 2016 Since then and simply indicate a received a phone call from radiology of the abnormal results of the MRI/MRA, and the recommendation to pursue CT angiogram to help verify if the findings are AVM's as suspected both a represent some alternate pathology. This is simply a note that I contacted the hospitalist and relayed this radiology suggestion. Darian Quintana MD Apr 04, 2016 23:40
[2016-04-05] VITALS (9 sets, daily range): BP systolic 114–169; BP diastolic 70–85; PULSE 70–78; RESP 17–20; O2SAT 97–98
[2016-04-05] MEDS: 0.9% Sodium Chloride 1,000 ML IV SCH ×3 (03:22→11:33)
[2016-04-05] MEDS ORDERED: Pantoprazole 40 mg ER24 Tablet PO SCH (06:30)
[2016-04-05 07:09] LABS: Hemoglobin A1C 5.5 % (4.8-5.6)
[2016-04-05 10:48] LABS: BASOPHILS % (AUTO) 0.4 % (0-3); EOSINOPHILS % (AUTO) 1.8 % (0-5); MONOCYTES % (AUTO) 7.8 % (4-12); Mean Corpuscular Hemoglobin 30.9 pg (27.0-35.0); Mean Corpuscular Volume 88.4 fL (81-100); NEUTROPHILS % (AUTO) 67.9 % (40-74); Platelet Count 256 bil/L (150-400)
--- NOTE | 2016-04-05 11:38 | DRSVH ---
PROCEDURE: US BILATERAL DUPLEX DOPPLER IMAGING OF THE CAROTIDS ([id number]) INDICATIONS: Evaluate stroke follow up TECHNIQUE: Color and pulse Doppler interrogation was performed of both carotid systems, with image documentation and velocity measurements. COMPARISON: None. FINDINGS: All stenosis calculations are based on NASCET criteria. Right side: Brachial blood pressure: 143/79 mm Hg. Common carotid artery peak systolic velocity: 52 cm/sec. Internal carotid artery peak systolic velocity: 99 cm/sec. Internal carotid artery end diastolic velocity: 30 cm/sec. External carotid artery peak systolic velocity: 69 cm/sec. ICA/CCA peak systolic ratio: 1.91. Cote scale imaging description: Moderate atheromatous calcification and plaque at the carotid bifurca tion. Percent internal carotid artery stenosis: Less than 50%. Vertebral artery: Flow direction is antegrade. Left side: Brachial blood pressure: 142/82 mm Hg. Common carotid artery peak systolic velocity: 72 cm/sec. Internal carotid artery peak systolic velocity: 88 cm/sec. Internal carotid artery end diastolic velocity: 31 cm/sec. External carotid artery peak systolic velocity: 100 cm/sec. ICA/CCA peak systolic ratio: 1.23. Cote scale imaging description: Moderate atheromatous calcification and plaque at the carotid bifurca tion. Percent internal carotid artery stenosis: Less than 50% stenosis. Vertebral artery: Flow direction is antegrade. IMPRESSION: Less than 50% stenosis of the bilateral internal carotid arteries. Dictated by: Malgorzata Jacobs M.D. on 04/05/2016 at 11:34 Approved by: Malgorzata Jacobs M.D. on 04/05/2016 at 11:36
[2016-04-05] MEDS ORDERED: Magnesium Sulf 4 Gm/100 mL H2O 4 GM in IV Premix 1 EACH IV ONE (12:25)
--- NOTE | 2016-04-05 12:57 | DRSVH ---
PROCEDURE: CT ANGIOGRAPHY OF THE BRAIN WITH AND WITHOUT CONTRAST ([id number]) INDICATIONS: mri findings TECHNIQUE: Precontrast 4.5 mm thick angled axial sections acquired from the foramen magnum to the vertex. Afte r the administration of intravenous contrast, 1 mm thick sections acquired through the [place] is. Postcontrast 4.5 mm thick sections then re-acquired from the foramen magnum to the vertex. 3-di mensional bwlppxg-drzjpmigi-kqtesxiyvu (MIP) and/or volume rendering reformats were acquired of the c entral intracranial vasculature. For radiation dose reduction, the following was used: automated ex posure control, adjustment of mA and/or kV according to patient size. COMPARISON: [facility], MR, MR BRAIN W&WO CON, 04/04/2016, 18:24. FINDINGS: Image quality: Excellent. Anterior circulation: Intracranial internal carotid arteries are normal in size and flow. The flow within the paired anterior cerebral arteries is normal and symmetric. The flow within the middle cer ebral arteries is normal and symmetric. The anterior communicating artery is seen. No aneurysms are seen. Posterior circulation: Visualized portions of the vertebral arteries demonstrate normal caliber, and join to form an overall normal appearing basilar artery. 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 Flow within the posterior cerebral arteries is normal and symmetric. No aneurysms are seen. CSF spaces: Ventricles are normal in size and shape. Basal cisterns are patent. No extra-axial flu id collections. Brain: There is new gomez-white dedifferentiation of the right temporal lobe when compared with the pr ior CT dated 03/28/09. In retrospect, this was likely present on the CT dated 04/04/16, but is increased in conspicuity and extent on the current study. Sulcal effacement of the right temporal lobe suggest the presence of cerebral edema. Patchy enhancement is present within the right temporal lobe similar in extent to the comparison MRI dated 04/04/16. Similarly, patchy enhancement within the right occipi michael lobe, left inferior cerebellar peduncle, and right thalamus are visualized. A prominent draining vein is noted within the right occipital lobe which may be associated with a vascular malformation ho wever, there are no other discrete vascular abnormalities to suggest multifocal vascular malformation s. Skull and face: Calvarium and facial bones appear intact, without suspicious lesions. Sinuses: Mild mucosal thickening is present within the left maxillary sinus. Visualized sinuses and mastoids are otherwise clear. IMPRESSION: 1. Findings suspicious for evolving infarct within the right temporal lobe versus increased cerebral edema when compared with prior CTs and MRIs. The in retrospect, there is likely trace increased rest ricted diffusion within this region on the comparison MRI dated 04/04/16. Additionally, there is likel y trace increased restricted diffusion within the lesion in the right occipital lobe and the lesion w ithin the left cerebellar peduncle. 2. No stenosis, occlusion, or aneurysm of the intracranial arteries. 3. No definite vascular malformations visualized; however these can often be angiographically occult are not excluded by this study. 4. In addition to the differential previously given on MRI for this constellation of findings (multif ocal vascular malformations, multifocal glioma, metastatic disease, tumefactive multiple sclerosis), infectious etiologies such as PML and herpes encephalitis or a demyelinating process such as ADEM cou ld also be considered in the appropriate clinical setting. Neurology consult recommended. These findi ngs were discussed with Dr. Collins on 04/05/16. Dictated by: Malgorzata Jacobs M.D. on 04/05/2016 at 12:44 Approved by: Malgorzata Jacobs M.D. on 04/05/2016 at 12:55
--- NOTE | 2016-04-05 14:46 | DRSVH ---
[facility] [address] [place] [place] [address] Echocardiogram Report Name: KENIA URIBE CStudy Date: 04/05/2016 Height: 72 in Hospital Exam Location: [facility] Weight: 174 lb Gender: Male BSA: 2.0 m2 : 1935 Age: 81 yrs BP: 143/79 mmHg Reason For Study: Stroke Ordering Physician: HOSPITALIST [facility] Performed By: Mitch Soriano Referring Physician: JO-ANN BERNABE Interpretation Summary 1) Mild concentric left ventricular hypertrophy with normal size, wall motion, and systolic function (EF 55-60%). 2) Right ventricle not well visualized but looks grossly normal in size and function. 3) Calcific aortic valve bu no aortic stenosis and no aortic regurgitation are present. 4) No prior Echo available for comparison. Procedure: A two-dimensional transthoracic echocardiogram with color flow and Doppler was performed. The study quality was technically adequate. There is no prior echocardiogram noted for this patient. Left Ventricle: The left ventricle is normal in size. There is mild concentric left ventricular hypertrophy. The ejection fraction is estimated to be 55-60%. Right Ventricle: The right ventricle grossly appears normal in size with probable normal systolic function. Atria: The left atrium grossly appears normal in size. The right atrium grossly appears normal in size. The interatrial septum is intact with no evidence for an atrial septal defect. Mitral Valve: The mitral valve leaflets appear mildly thickened, but open well. The mitral valve leaflets are mildly calcified. There is no mitral regurgitation noted. Aortic Valve: The aortic valve is trileaflet. The aortic valve is mildly calcified. There is no aortic valve stenosis. No aortic regurgitation is present. Tricuspid Valve: The tricuspid valve is not well visualized, but is grossly normal. Pulmonary artery pressures cannot be estimated because of the lack of a measurable TR jet velocity. There is trace tricuspid regurgitation. Pulmonic Valve: The pulmonic valve is not well visualized. Great Vessels: The aortic root is normal size. The ascending aorta is mildly enlarged. The pulmonary artery is normal size. The IVC is of normal diameter and collapses greater than 50% with a sniff. This suggests a low right atrial pressure of 3 mm Hg. Pericardium/ Pleura There is no pericardial effusion. There is no pleural effusion. MMode/2D Measurements & Calculations LVIDd LVOT diam: 2.2 cm LV hua. diameter/BSA LV sys. diameter/BSA : 4.2 cm Ao root diam (cm/m^2): 2.1 (cm/m^2): 1.7 LVIDs : 3.4 cm asc Aorta Diam FS : 19.% Ao Arch Diam (Prox EPSS Trans): 2.8 cm : 0.8cm IVSd : 1.cm LVPWd : 1.1 cm Doppler Measurements & Calculations Ao V2 max: 137.9 cm/secMV E max tyson MV E/A: 0.57 PA V2 max Ao max P.6 mmHg : 49.6 cm/sec Med Peak E' Tyson : 91.1 cm/sec Ao mean P.7 mmHg MV A max tyson PA mean PG LVOT Max Tyson : 86.5 cm/sec E/E' med: 12.7 : 2.2 mmHg : 89.0 cm/sec Lat Peak E' Tyson LUCÍA(I,D): 2.2 cm E/E' lat: 9.8 sev ratio: 0.56 E/e' average MV dec time: 0.29 sec Ao V2 mean LV V1 max PG PA V2 mean : 105.0 cm/sec : 70.7 cm/sec Ao V2 VTI: 29.8 cm LV V1 VTI: 16.6 cmPA pr(Accel) : 43.2 mmHg LUCÍA(V,D): 2.5 cm2 LUCÍA indexed to BSA (cm^2/m^2): 1.1 Reading Physician:02:46 PM
--- NOTE | 2016-04-05 22:00 | PCM.DC.MED ---
Discharge Summary Date of Service Apr 05, 2016 Dates of Hospitalization Date of Hospital Admission Apr 04, 2016 at 17:44 Date of Discharge: Apr 05, 2016 Providers: Admitting Physician: Maria Elena Sanchez MD Primary Care Physician: Other,Physician Attending Physician: Maria Elena Sanchez MD Diagnosis at Time of Discharge Diagnosis at Time of Discharge Multiple central nervous system lesions of unknown etiology Procedures XRay, CTs & MRIs PROCEDURE: CT BRAIN WITHOUT CONTRAST ([id number]) INDICATIONS: fall/dizziness TECHNIQUE: Noncontrast 4.5 mm thick angled axial sections acquired from the foramen magnum to the vertex, with coronal reformats. COMPARISON: [facility], CT, CT BRAIN WO CON, 03/28/2016, 12:38. FINDINGS: Image quality: Excellent. CSF spaces: Basal cisterns are patent. No extra-axial fluid collections. The ventricles are symmetric in size and shape. Brain: No intracranial bleeds or masses. There is cerebral volume loss for age , with resultant ventricular and sulcal prominence. There are periventricular and deep white matter chronic small vessel ischemic changes. There is intracranial internal carotid artery atherosclerosis. Skull and face: Calvarium and visualized facial bones appear intact, without suspicious lesions. Sinuses: Frothy appearing fluid is present in the inferior aspect of the left maxillary sinus which is new when compared with the study dated 03/28/16. Visualized sinuses and mastoids are otherwise clear. IMPRESSION: 1. No acute intracranial findings. 2. Findings suspicious for new left maxillary sinus sinusitis. 3. Findings likely associated with microvascular ischemic changes. Dictated by: Malgorzata Jacobs M.D. on 04/04/2016 at 14:02 Approved by: Malgorzata Jacobs M.D. on 04/04/2016 at 14:12 PROCEDURE: X-RAY CHEST ONE VIEW, PORTABLE ([id number]) INDICATIONS: cough TECHNIQUE: One view of the chest was acquired. COMPARISON: [facility], CR, XR CHEST 1VW (PORTABLE), 03/28/2016, 12: 13. FINDINGS: Surgical changes and devices: None. Lungs and pleura: No pleural effusions or pneumothorax. Lungs are unchanged, with overlying chronic pleural plaquing and calcifications consistent with extensive prior asbestos related pleural disease. Mediastinum: Mediastinal contours appear normal. Heart size is normal. Bones and chest wall: No suspicious bony lesions. Overlying soft tissues appear unremarkable. 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 No pneumonia found. Dictated by: Boo Pollock M.D. on 04/04/2016 at 15:47 Approved by: Boo Pollock M.D. on 04/04/2016 at 15:47 PROCEDURE: MRI BRAIN WITH AND WITHOUT CONTRAST ([id number]) INDICATIONS: vertigo, 3rd ED visit for sx TECHNIQUE: Noncontrast axial T1 spin echo, axial T2 fast spin echo, sagittal and axial FLAIR, coronal T2 fast spin echo, axial gradient echo, axial diffusion and ADC through the brain. After the administration of contrast, axial and coronal T1 spin echo with fat saturation through the brain. COMPARISON: [facility], CT, CT BRAIN WO CON, 03/28/2016, 12:38. [facility], CT, CT BRAIN WO CON, 04/04/2016, 13:54. FINDINGS: Image quality: Excellent. CSF spaces: Basal cisterns are patent. No extra-axial fluid collections. Ventricles are normal in size and shape. Brain: No midline shift. There are multiple regions of intraparenchymal multinodular avid post contrast enhancement. The largest of these is within the right anterior temporal lobe, measuring roughly 46 mm anteroposterior by 24 mm transverse by 20 mm craniocaudal. There is moderate surrounding ill-defined FLAIR signal elevation within the adjacent aspects of the right anterior temporal lobe. There is ill-defined avid post contrast enhancement seen within the right postero-medial parietal lobe, measuring 26 mm anteroposterior by 26 mm transverse by 29 mm craniocaudal, with moderate surrounding ill-defined FLAIR signal elevation in the adjacent parietal lobe. There is a small focus of low gradient echo signal intensity within this lesion, suggestive of a vascular malformation. Within the right anteromedial thalamus, there is a 23 mm anteroposterior by 14 mm transverse by 21 mm craniocaudal region of avid multi-nodular post contrast- enhancement, with moderate surrounding FLAIR signal elevation in the adjacent right thalamus. Within the left middle and inferior cerebellar peduncle, there is a 20 mm transverse by 15 millimeter anteroposterior by 22 mm craniocaudal region of avid multinodular post contrast-enhancement, with moderate surrounding FLAIR signal elevation in the left middle and inferior cerebellar peduncles. There is cerebral volume loss for age. There is moderate periventricular white matter chronic small vessel ischemic change. The brainstem appears normal. Diffusion-weighted images demonstrate no acute ischemic insults. No chronic ischemic insults. Normal intravascular flow voids are present. Skull and face: Calvarial marrow is normal in signal. Orbits appear normal. Sinuses: Sinuses and mastoids appear clear. IMPRESSION: 1. Multiple similar-appearing abnormalities within the cerebrum and cerebellum as described above, with surrounding vasogenic edema. 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 However, given the surrounding vasogenic edema, multifocal glioblastoma versus metastatic disease versus tumefactive multiple sclerosis could produce a similar appearance. CT angiography may be helpful for further assessment, to resolve feeding and draining vessels. There is no evidence of associated acute hemorrhage. 2. Volume loss and small vessel ischemic disease. 3. Findings discussed with Dr. Quintana on 04.04.[address] [place] [address]. [facility]. Dictated by: Cody Andrade M.D. on 04/04/2016 at 18:33 Approved by: Cody Andrade M.D. on 04/04/2016 at 19:02 PROCEDURE: CT ANGIOGRAPHY OF THE BRAIN WITH AND WITHOUT CONTRAST ([id number]) INDICATIONS: mri findings TECHNIQUE: Precontrast 4.5 mm thick angled axial sections acquired from the foramen magnum to the vertex. After the administration of intravenous contrast, 1 mm thick sections acquired through the [employer] [place] [employer] [place]. Postcontrast 4.5 mm thick sections then re-acquired from the foramen magnum to the vertex. 3-dimensional ccfbean-ksuyqdala-ydmmajuifm (MIP) and/or volume rendering reformats were acquired of the central intracranial vasculature. For radiation dose reduction , the following was used: automated exposure control, adjustment of mA and/or kV according to patient size. COMPARISON: [facility], MR, MR BRAIN W&WO CON, 04/04/2016, 18:24. FINDINGS: Image quality: Excellent. Anterior circulation: Intracranial internal carotid arteries are normal in size and flow. The flow within the paired anterior cerebral arteries is normal and symmetric. The flow within the middle cerebral arteries is normal and symmetric. The anterior communicating artery is seen. No aneurysms are seen. Posterior circulation: Visualized portions of the vertebral arteries demonstrate normal caliber, and join to form an overall normal appearing basilar artery. 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 Flow within the posterior cerebral arteries is normal and symmetric. No aneurysms are seen. CSF spaces: Ventricles are normal in size and shape. Basal cisterns are patent. No extra-axial fluid collections. Brain: There is new gomez-white dedifferentiation of the right temporal lobe when compared with the prior CT dated 03/28/09. In retrospect, this was likely present on the CT dated 04/04/16, but is increased in conspicuity and extent on the current study. Sulcal effacement of the right temporal lobe suggest the presence of cerebral edema. Patchy enhancement is present within the right temporal lobe similar in extent to the comparison MRI dated 04/04/16. Similarly, patchy enhancement within the right occipital lobe, left inferior cerebellar peduncle, and right thalamus are visualized. A prominent draining vein is noted within the right occipital lobe which may be associated with a vascular malformation however, there are no other discrete vascular abnormalities to suggest multifocal vascular malformations. Skull and face: Calvarium and facial bones appear intact, without suspicious lesions. Sinuses: Mild mucosal thickening is present within the left maxillary sinus. Visualized sinuses and mastoids are otherwise clear. IMPRESSION: 1. Findings suspicious for evolving infarct within the right temporal lobe versus increased cerebral edema when compared with prior CTs and MRIs. The in retrospect, there is likely trace increased restricted diffusion within this region on the comparison MRI dated 04/04/16. Additionally, there is likely trace increased restricted diffusion within the lesion in the right occipital lobe and the lesion within the left cerebellar peduncle. 2. No stenosis, occlusion, or aneurysm of the intracranial arteries. 3. No definite vascular malformations visualized; however these can often be angiographically occult are not excluded by this study. 4. In addition to the differential previously given on MRI for this constellation of findings (multifocal vascular malformations, multifocal glioma , metastatic disease, tumefactive multiple sclerosis), infectious etiologies such as PML and herpes encephalitis or a demyelinating process such as ADEM could also be considered in the appropriate clinical setting. Neurology consult recommended. These findings were discussed with Dr. Collins on 04/05/16. Dictated by: Malgorzata Jacobs M.D. on 04/05/2016 at 12:44 Approved by: Malgorzata Jacobs M.D. on 04/05/2016 at 12:55 ECG 12 Lead Pending at the time of this dictation Cardiac Echo Impression Echocardiogram Report Name: KENIA URIBE CStudy Date: 04/05/2016 Height: 72 in Hospital Exam Location: [facility] Weight: 174 lb Gender: Male BSA: 2.0 m2 : 1935 Age: 81 yrs BP: 143/79 mmHg Reason For Study: Stroke Ordering Physician: [facility]OSPITALIST [facility] Performed By: Mitch Soriano Referring Physician: MARIA ELENA SANCHEZ Interpretation Summary 1) Mild concentric left ventricular hypertrophy with normal size, wall motion, and systolic function (EF 55-60%). 2) Right ventricle not well visualized but looks grossly normal in size and function. 3) Calcific aortic valve bu no aortic stenosis and no aortic regurgitation are present. 4) No prior Echo available for comparison. Brief History This is a 81-year-old male who was brought in by his daughter today. He has been having since July episodes of vertigo however over the past 2 weeks they have been getting a lot worse. She has been seen multiple times in the ER including [facility] and [facility]. CT of brain has been done and has been negative. He does have a neuro consultation but has not gone to it yet. As of the vertigo he does have falls. He is noted to have some nystagmus of his left eye may be a little bit of eyelid drooping on the left. Also of note today his sodium was low at 129. He has no motor deficits however. He does get nauseous with the vertigo. He takes meclizine at home and maybe helps a little bit. He denies any chest pain or shortness of breath. Denies any problem with use of his hands. Patient was evaluated in the emergency room at [facility] and was deemed appropriate to bring in under observation to the hospital service for further evaluation and treatment. Hospital Course This is a 81-year-old male who was brought in by his daughter today. He has been having since July episodes of vertigo however over the past 2 weeks they have been getting a lot worse. She has been seen multiple times in the ER including [facility] and [facility]. CT of brain has been done and has been negative. He does have a neuro consultation but has not gone to it yet. As of the vertigo he does have falls. He is noted to have some nystagmus of his left eye may be a little bit of eyelid drooping on the left. Also of note today his sodium was low at 129. He has no motor deficits however. He does get nauseous with the vertigo. He takes meclizine at home and maybe helps a little bit. He denies any chest pain or shortness of breath. Denies any problem with use of his hands. Patient was evaluated in the emergency room at [facility] and was deemed appropriate to bring in under observation to the hospital service for further evaluation and treatment. # Progressive vertigo, subacute, present on admission -MRI imaging of brain showed: Multiple similar-appearing abnormalities within the cerebrum and cerebellum as described above, with surrounding vasogenic edema. 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 However, given the surrounding vasogenic edema, multifocal glioblastoma versus metastatic disease versus tumefactive multiple sclerosis could produce a similar appearance. CT angiography may be helpful for further assessment, to resolve feeding and draining vessels. There is no evidence of associated acute hemorrhage. -CT angiogram was performed and showed the followin. Findings suspicious for evolving infarct within the right temporal lobe versus increased cerebral edema when compared with prior CTs and MRIs. The in retrospect, there is likely trace increased restricted diffusion within this region on the comparison MRI dated 04/04/16. Additionally, there is likely trace increased restricted diffusion within the lesion in the right occipital lobe and the lesion within the left cerebellar peduncle. 2. No stenosis, occlusion, or aneurysm of the intracranial arteries. 3. No definite vascular malformations visualized; however these can often be angiographically occult are not excluded by this study. 4. In addition to the differential previously given on MRI for this constellation of findings (multifocal vascular malformations, multifocal glioma , metastatic disease, tumefactive multiple sclerosis), infectious etiologies such as PML and herpes encephalitis or a demyelinating process such as ADEM could also be considered in the appropriate clinical setting. Neurology consult recommended. 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 #DVT prophylaxis -Placed on subcutaneous Lovenox # CODE STATUS -Patient is full code Disposition: I have contacted Dr. Franco neurologist on-call at [facility] in [place], [place]. He reviewed the case and reviewed the patient's MRI findings and recommended that the patient be immediately transferred to their facility for further workup and possible brain biopsy. Exam Vital Signs (Last) Date Time Temp Pulse Resp B/P Pulse Ox O2 Delivery O2 Flow Rate FiO2 04/05/16 14:00 36.5 70 20 169/84 98 Room Air Exam General: Patient is in no apparent distress laying supine in bed. There are numerous abrasions and cuts from previous falls that are healing well. There is no evidence of any abrasions being infected or any evidence of cellulitis. HEENT: Head is atraumatic and normocephalic. Eyes: Pupils are equally round and reactive to light and accommodation. Extraocular muscles are intact. Sclera are white, anicteric. Subconjunctival mucosa is pink. Ears and nose are unremarkable. Oropharynx: There is no mucosal lesions, there is no thrush, there is no pharyngitis. Neck: Is supple, there are no nodes, or masses or tenderness. Chest: Is clear to auscultation and percussion. There are no rales, rhonchi, wheezes or rubs. Heart: Rate, rhythm is regular. There is no murmur, rub or gallop. Abdomen: Good bowel sounds are present. Abdomen is soft, nontender, no organomegaly or masses were appreciated. Extremities: Are symmetrical and well perfused. There is no edema, there is no cellulitis, no rash. Neurologic: There are no focal neurological deficits. Cranial nerves II through XII are intact. There are no sensory or motor deficits. However, patient exhibits loss of balance when standing. He begins to sway back-and- forth. And is very unsteady on his feet. Psychiatric: Patients mood is calm and shows no sign of agitation. Genital: Deferred Rectal: Deferred Test 04/04/16 14:05 04/04/16 14:25 04/04/16 14:41 04/04/16 19:58 Troponin T < 0.010ug/L (0.0-0.011) Hold Flores Top Tube Received (Received) Alcohol, Quantitative < 10mg/dL (0-10) Lactic Acid Level 1.2mmol/L (0.4-2.0) Urine Color Yellow (YELLOW) Urine Appearance Hazy (CLEAR,HAZY) Urine pH 7.5 (5.0-8.0) Urine Specific [place] 1.015 (1.003-1.035) Urine Protein Negativemg/dL (NEG,TRACE) Urine Glucose (UA) Negativemg/dL (NEGATIVE) Urine Ketones Negativemg/dL (NEGATIVE) Urine Occult Blood Negative (NEGATIVE) Urine Nitrite Negative (NEGATIVE) Urine Bilirubin Negative (NEGATIVE) Urine Urobilinogen Normalmg/dL (NORMAL) Urine Leukocyte Esterase Negative (NEGATIVE) Urine RBC 0-2/hpf (0-2) Urine WBC 0-5/hpf (0-5) Urine Epithelial Cells Occasional/hpf (NONE-MOD) Urine Crystals Amorphous phosphates Urine Bacteria Few/hpf (NONE-FEW) Urine Hyaline Casts None/lpf (NONE) Urine Granular Casts None seen (NONE SEEN) Urine Waxy Casts None seen (NONE SEEN) Urine Red Blood Cell Casts None seen (NONE SEEN) Urine White Blood Cell Casts None seen (NONE SEEN) Urine Mucus Present (None Seen) Urine Trichomonas None seen (NONE SEEN) Urine Yeast None (NONE SEEN) Urinalysis Comment None Urine Culture Reflexed Not indicated Erythrocyte Sedimentation Rate 5mm/hr (0-30) Prothrombin Time 11.8sec (8.1-12.5) Prothromb Time International Ratio 1.10ratio Hemoglobin A1c 5.5% (4.8-5.6) Triglycerides Level 65mg/dL (0-149) Cholesterol Level 176mg/dL (100-199) LDL Cholesterol, Calculated 100.000mg/dL (0-99) VLDL Cholesterol 13.000mg/dL HDL Cholesterol 63mg/dL (>39) Cholesterol/HDL Ratio 2.79 (0.0-4.4) Rapid Plasma Reagin Non reactive (Non Reactive) Test 04/05/16 10:00 White Blood Count 7.8th/mm3 (3.8-10.1) Red Blood Count 4.47mil/mm3 (4.40-5.80) Hemoglobin 13.8g/dL (13.8-17.2) Hematocrit 39.5% (41.0-50.0) Mean Corpuscular Volume 88.4fL (81-100) Mean Corpuscular Hemoglobin 30.9pg (27.0-35.0) Mean Corpuscular Hemoglobin Concent 34.9% (32.0-37.0) Red Cell Distribution Width 13.1% (12.3-15.4) Platelet Count 256bil/L (150-400) Neutrophils (%) (Auto) 67.9% (40-74) Lymphocytes (%) (Auto) 21.1% (14-46) Monocytes (%) (Auto) 7.8% (4-12) Eosinophils (%) (Auto) 1.8% (0-5) Basophils (%) (Auto) 0.4% (0-3) Sodium Level 128mEq/L (134-144) Potassium Level 4.4mEq/L (3.5-5.2) Chloride Level 93mEq/L (97-108) Carbon Dioxide Level 24mmol/L (18-29) Blood Urea Nitrogen 16mg/dL (8-27) Creatinine 0.81mg/dL (0.76-1.27) Estimat Glomerular Filtration Rate 97mL/min (>59) Glucose Level 122mg/dL (60-99) Calcium Level 8.4mg/dL (8.5-10.1) Magnesium Level 1.6mg/dL (1.6-2.6) Total Bilirubin 0.8mg/dL (0.0-1.2) Aspartate Amino Transf (AST/SGOT) 15U/L (0-50) Alanine Aminotransferase (ALT/SGPT) 12U/L (0-44) Alkaline Phosphatase 48U/L (25-160) Total Protein 5.9g/dL (6.4-8.4) Albumin 3.5g/dL (3.4-5.0) Discharge Medications Discharge Medications Esomeprazole Magnesium (Nexium) 20 Mg Capsule.dr 20 MG PO QAM (Reported) As needed Meclizine (Bonine) 25 Mg Tab.chew 25 MG PO TID PRN PRN For Dizziness Prescribed by: HOSEA PAIGE Ondansetron (Ondansetron) 4 Mg Tablet 4 MG PO TID PRN PRN For Nausea/Vomiting ( Reported) Polyethylene Glycol 3350 (Polyethylene Glycol 3350) 17 Gm Powd.pack 17 GM PO DAILY PRN PRN For Constipation (Reported) Followup Plan Disposition: The patient will be referred to [facility] Time spent Time spent on discharging this patient was greater than 35 minutes over half of which was involved in counseling and coordination of care. Zach Collins MD Apr 05, 2016 22:00
== END 2016-04-05 18:45 | disposition short-term general hospital (02) | DRG 149 ==
LOC: SED 13:06 → OBSVTOIN 17:44 → MOC 17:44
PROVIDERS: ADMIT Specialist; ATTEND Specialist
DX: R42 Dizziness and giddiness (principal); E87.1 Hypo-osmolality and hyponatremia; R29.6 Repeated falls; R94.02 Abnormal brain scan

== ENCOUNTER 2016-07-24 10:06 | Emergency (ER) | payer MEDICARE ==
[~2016-07-24] VITALS: Ht 182.9 cm; Wt 95.0 kg
[~2016-07-24 10:06] MED LIST changes: +ESOM20CA28 PO; +ONDA-53 PO; +POLY17PO2 PO
[2016-07-24 10:23] VITALS: BP 171/98; PULSE 78; RESP 12; O2SAT 98
--- NOTE | 2016-07-24 11:04 | ED.REPORT ---
HPI-Abd Pain M 40 and Over Date of Service Jul 24, 2016 ED Provider: Camron Burnette MD Patient is an 81 year old male with a history of lymphoma who presents to the ED complaining of bleeding hemorrhoids for the past 3 days. Associated symptoms include worsening right flank pain. He reports he has had this pain for the past year. The patient reports that he has medication for stool softener but has been in worsening pain the last few days. Patient's last chemotherapy treatment was 4 days ago. Nursing Notes Stated Complaint: RIGHT SIDE PAIN /BLEEDING HEMORRHOIDS Chief Complaint: General Complaint Nursing Notes Reviewed: Yes Allergies: Coded Allergies: No Known Allergies (Unverified , 03/28/16) Scheduled Esomeprazole Magnesium (Nexium) 20 Mg Capsule.dr 20 MG PO QAM Scheduled PRN Magnesium Hydroxide (Milk of Magnesia) 400 Mg/5 Ml Oral.susp 15 ML PO QID PRN PRN For Constipation Meclizine (Bonine) 25 Mg Tab.chew 25 MG PO TID PRN PRN For Dizziness Ondansetron (Ondansetron) 4 Mg Tablet 4 MG PO TID PRN PRN For Nausea/Vomiting Polyethylene Glycol 3350 (Polyethylene Glycol 3350) 17 Gm Powd.pack 17 GM PO DAILY PRN PRN For Constipation General Time Seen by MD: 11:03 Chief Complaint Other (bleeding hemorrhoids) Hx Obtained From: Patient Arrived By: Walk-in Sudden in Onset?: Yes (Z) Onset Occurred: 3 days ago Symptom Duration: Since onset Radiation: : Flank right Severity: Current: Moderate Recent Healthcare: Recent doctor visit, Recent hospitalization Similar Sx Previous: Yes Past Medical History Past Medical History Notes: Asbestosis GERD Past Medical History lymphoma Smoking History Former Smoker Social History Other Social History: Good social support, Ambulatory Status Independent Review of Systems Review of Systems Note: bleeding hemorrhoids Constitutional: Denies: Fever Respiratory: Denies: Non-productive cough, Shortness of breath GI: Reports: Abdominal pain Male: Reports Flank pain Complete sys rev & neg: except as marked. Skin: Denies Rash Physical Exam Initial Vital Signs Vital Signs (First) Date Time Temp Pulse Resp B/P Pulse Ox O2 Delivery O2 Flow Rate FiO2 07/24/16 10:23 36.6 78 12 171/98 98 Room Air Initial VS: Reviewed General/Constitutional: Awake, Alert Respiratory / Chest: Atraumatic, No respiratory distress Cardiovascular: Heart rate NL, Regular rhythm, Heart sounds NL Abdomen: Atraumatic, Soft Tenderness/Guarding/Rebound: Positive: Tender RLQ... (Mild) Back: Atraumatic, Full range of motion Head / Eyes: Atraumatic, Normocephalic, PERRL, EOMI Skin: Atraumatic, Color NL, No rash, Warm, Dry Rectum / Perineum: Atraumatic, No fissures, No hemorrhoids, No lesions, No mass extreme rectal tenderness Neurologic: Oriented X3, Speech NL, No motor deficits, No sensory deficits Psychiatric: Affect NL, Mood NL Interpretation & Diagnostics Lab Results Interpretation Result Diagram: 07/24/16 1130 07/24/16 1130 Test 07/24/16 11:30 07/24/16 12:42 White Blood Count 9.7th/mm3 (3.8-10.1) Red Blood Count 3.56mil/mm3 (4.40-5.80) Hemoglobin 11.1g/dL (13.8-17.2) Hematocrit 32.9% (41.0-50.0) Mean Corpuscular Volume 92.4fL (81-100) Mean Corpuscular Hemoglobin 31.2pg (27.0-35.0) Mean Corpuscular Hemoglobin Concent 33.7% (32.0-37.0) Red Cell Distribution Width 13.7% (12.3-15.4) Platelet Count 257bil/L (150-400) Neutrophils (%) (Auto) 76.9% (40-74) Lymphocytes (%) (Auto) 11.3% (14-46) Monocytes (%) (Auto) 10.0% (4-12) Eosinophils (%) (Auto) 0.3% (0-5) Basophils (%) (Auto) 0.1% (0-3) Sodium Level 134mEq/L (134-144) Potassium Level 4.4mEq/L (3.5-5.2) Chloride Level 95mEq/L (97-108) Carbon Dioxide Level 25mmol/L (18-29) Blood Urea Nitrogen 13mg/dL (8-27) Creatinine 1.09mg/dL (0.76-1.27) Estimat Glomerular Filtration Rate 69mL/min (>59) Glucose Level 104mg/dL (60-99) Calcium Level 9.2mg/dL (8.5-10.1) Magnesium Level 1.8mg/dL (1.6-2.6) Total Bilirubin 0.4mg/dL (0.0-1.2) Aspartate Amino Transf (AST/SGOT) 17U/L (0-50) Alanine Aminotransferase (ALT/SGPT) 22U/L (0-44) Alkaline Phosphatase 49U/L (25-160) Total Protein 6.2g/dL (6.4-8.4) Albumin 4.1g/dL (3.4-5.0) Lipase 15U/L (13-60) Hold Flores Top Tube Received (Received) Hold Urine Received (Received) ECG Interpretation Time: 11:33 Interpreted by: ED physician Normal ECG Interpretation: Normal rate (71), Normal sinus rhythm CT Abd / Pelvis Interpretation IMPRESSION: 1. No imaging explanation for right lower quadrant abdominal pain. Diminutive appendix appears normal in caliber. 2. Descending and sigmoid colon diverticulosis, without acute diverticulitis. 3. Bibasilar calcified pleural plaques indicate remote asbestos exposure. 4. Solitary dependent 1.5 cm calcified gallstone again noted. 5. 2.7 cm lateral left renal cortical exophytic simple cyst. 6. Moderate stool within the rectal vault may raise the question of constipation. 7. Diffuse fatty infiltration of the liver. Dictated by: Vijay Bello M.D. on 07/24/2016 at 13:32 Approved by: Vijay Bello M.D. on 07/24/2016 at 13:41 Interpretation / Wet Read by: Interpret - Radiologist Re-Eval/Medical Decision Med Decision/Clinical Course Patient presents with right lower quadrant and rectal pain and some amount of blood on the toilet paper when he wipes. Rectal exam is performed. He does not have a perirectal abscess there are no obvious hemorrhoids or fissures. His stool was light brown and normal soft texture. There is no evidence of fecal impaction. Labs are reassuring. CT reveals extensive constipation which may be the underlying issue. Certainly entertain the idea of perianal abscess, deep space infection these are unremarkable based on imaging and physical exam as well as laboratory studies. Patient will be discharged on a more aggressive bowel regimen. Return and follow-up precautions given. Source of Hx: Old records Time of Eval: 12:47 Re-Evaluation/Progress Note: Rectal exam was unremarkable but patient reports extreme rectal tenderness Time of Eval: 14:07 Re-Evaluation/Progress Note: Discussed results and plan for discharge. The patient understands and agrees to the plan for discharge. All questions were addressed. Counseled Regarding: Diagnosis, Lab results, Need for follow-up, When/why to return to ED Discharge & Departure Primary Impression: Constipation Constipation type: unspecified constipation type Qualified Code: K59.00 - Constipation, unspecified Disposition: Home Vital Signs - All Vital Signs Date Time Temp Pulse Resp B/P Pulse Ox O2 Delivery O2 Flow Rate FiO2 07/24/16 10:23 36.6 78 12 171/98 98 Room Air )( All Prior VS Reviewed: Yes Condition: Stable Patient Instructions: Constipation (ED) Additional Instructions: Thank you for trusting us with your care. Your labs and CT were reassuring. It looks like you are constipated. Keep taking the medications your were prescribed, including the miralax. When you get home, you should start milk of magnesia every six hours, until you have a large soft BM. Also give a mineral oil enema. If you have a large soft stool, you don't need to do a regular enema. If you don't have a solid stool, in the morning you should use two sodium phosphate enemas approximately two hours apart. You should call your primary care physician in the morning for close follow up evaluation. Please return to the emergency department if you develop any new or worsening symptoms including fever, vomiting, increasing pain. Referrals: OTHER,PHYSICIAN (PCP) Scribe Attestation Portions of this note were transcribed by Desirae Angulo. I, Dr. Malou Dietz personally performed the history, physical exam and medical decision-making; I reviewed and confirmed the accuracy of the information in the transcribed note. Signed by: Manny Watts, 07/24/16 and 1410 Camron Nina DO Jul 24, 2016 11:04 China Angulo Jul 24, 2016 11:16
[2016-07-24] MEDS ORDERED: 0.9% Sodium Chloride 1,000 ML IV ONE (11:13)
[2016-07-24] MEDS ORDERED: HYDROmorphone 0.5 mg/0.5 mL iSecure Syringe IVPUSH PRN (11:15)
[2016-07-24] MEDS ORDERED: Ondansetron 2 mg/mL 2 mL Inj IVPUSH PRN (11:15)
[2016-07-24 11:46] LABS: BASOPHILS % (AUTO) 0.1 % (0-3); EOSINOPHILS % (AUTO) 0.3 % (0-5); Mean Corpuscular Hemoglobin 31.2 pg (27.0-35.0); Mean Corpuscular Volume 92.4 fL (81-100); NEUTROPHILS % (AUTO) 76.9 % (40-74); Platelet Count 257 bil/L (150-400)
[2016-07-24 12:16] LABS: Magnesium 1.8 mg/dL (1.6-2.6)
--- NOTE | 2016-07-24 13:42 | DRSVH ---
PROCEDURE: CT ABDOMEN AND PELVIS WITH CONTRAST ([id number]) INDICATIONS: 81 year-old male with right lower quadrant and rectal pain. TECHNIQUE: After the administration of intravenous contrast, 5 mm thick sections acquired from the diaphragm to the symphysis. 5 mm coronal and sagittal reformats were acquired. For radiation dose reduction, the following was used: automated exposure control, adjustment of mA and/or kV according to patient siz e. COMPARISON: [facility], , CT THORAX W/O CONTRAST, 05/30/2005, 12:32. FINDINGS: Image quality: Excellent. ABDOMEN: Lung bases: Lung bases are clear. Bibasilar calcified pleural plaques are again noted. Heart size i s normal. Solid organs: Liver and spleen are normal in size, with diffuse fatty infiltration of the liver. Ga llbladder contains a solitary 1.5 cm dependent calcified gallstone as before. Biliary system is non dilated. Pancreas enhances normally. No adrenal nodules. Kidneys demonstrate normal size and enhan cement, without hydronephrosis. 2.7 cm lateral left renal cortical exophytic simple cyst is present. Peritoneum and bowel: Bowel loops demonstrate normal wall thickness and caliber. On axial image 64, a diminutive appendix appears normal in caliber. There is descending and sigmoid colon diverticulosi s. There is moderate stool within the rectal vault. No free fluid or air. Nodes and vessels: No retroperitoneal or mesenteric adenopathy by size criteria. Aorta and inferior vena cava are normal in size, with moderate aortoiliac atherosclerosis. Miscellaneous: No ventral hernias. PELVIS: Genitourinary: Bladder wall thickness is normal. Prostate gland is small or surgically absent. Miscellaneous: No inguinal hernias or adenopathy. Bones: No suspicious bony lesions. No vertebral body compression fractures. T12 superior endplate S chmorl's node is present from disc degeneration. There is mild lumbar spine levoscoliosis. IMPRESSION: 1. No imaging explanation for right lower quadrant abdominal pain. Diminutive appendix appears normal in caliber. 2. Descending and sigmoid colon diverticulosis, without acute diverticulitis. 3. Bibasilar calcified pleural plaques indicate remote asbestos exposure. 4. Solitary dependent 1.5 cm calcified gallstone again noted. 5. 2.7 cm lateral left renal cortical exophytic simple cyst. 6. Moderate stool within the rectal vault may raise the question of constipation. 7. Diffuse fatty infiltration of the liver. Dictated by: Vijay Bello M.D. on 07/24/2016 at 13:32 Approved by: Vijay Bello M.D. on 07/24/2016 at 13:41
[2016-07-24] MEDS ORDERED: MAGN400O4 PO (14:16)
[2016-07-24 14:32] VITALS: BP 142/68; PULSE 71; RESP 18; O2SAT 98
== END 2016-07-24 14:44 | disposition home or self-care (01) ==
LOC: SED 10:06
DX: K59.00 Constipation, unspecified (principal); K21.9 Gastro-esophageal reflux disease without esophagitis; Z85.72 Personal history of non-Hodgkin lymphomas; Z92.21 Personal history of antineoplastic chemotherapy; Z87.891 Personal history of nicotine dependence
CPT/HCPCS: 36415; 74177; 80053; 83690; 83735; 85025; 93005; 96361; 96374; 96375; 99285; J1170; J2405; J7030; Q9967